=== PATIENT | female | born 1975 | race Hispanic/Latino ===

== ENCOUNTER 2020-02-10 08:18 | Emergency (ER) | payer BC ==
[~2020-02-10] VITALS: Ht 157.5 cm; Wt 110.7 kg
[2020-02-10] MEDS ORDERED: PEPTO-BISM262 MG/15 PO (08:40)
[2020-02-10] MEDS ORDERED: IBUPROFEN200 M1 PO (08:41)
[2020-02-10] MEDS ORDERED: MULTIVITAMINS1 EAC7 PO (08:41)
[2020-02-10] MEDS ORDERED: LOMOTIL TABLET1 EACH PO (11:05)
[2020-02-10] MEDS ORDERED: FLAGYL500 MG PO (11:05)
== END 2020-02-10 11:30 | disposition home or self-care (01) ==
LOC: ED 08:18
DX: R19.7 Diarrhea, unspecified (principal); Z79.899 Other long term (current) drug therapy
CPT/HCPCS: 74177; 80053; 81001; 83690; 84703; 85025; 87493; 96361; 96374; 96375; 99284-25; J2270; J2405; J7030; Q9967